=== PATIENT | male | born 1930 | race Caucasian/White ===

== ENCOUNTER → 2018-06-17 | Outpatient (CLI) | payer MEDICARE ==
[2018-05-08 11:00] VITALS: BP 118/73
[~2018-06-17] MED LIST: BALS60OI TP; Fluconazole PO; IBUP-1027 PO; LEVO100T PO; LINE600T PO; NYST15PO9 TP; SENN-80 PO
== END | disposition home or self-care (01) ==
LOC: PMGWOUND 11:25
PROVIDERS: ATTEND Preventive Medicine Undersea and Hyperbaric Medicine
DX: L89.893 Pressure ulcer of other site, stage 3 (principal); L89.623 Pressure ulcer of left heel, stage 3; L97.421 Non-pressure chronic ulcer of left heel and midfoot limited to breakdown of skin; L97.511 Non-pressure chronic ulcer of other part of right foot limited to breakdown of skin; I11.0 Hypertensive heart disease with heart failure; I50.22 Chronic systolic (congestive) heart failure; I73.9 Peripheral vascular disease, unspecified; I48.91 Unspecified atrial fibrillation; K21.9 Gastro-esophageal reflux disease without esophagitis; E03.9 Hypothyroidism, unspecified
CPT/HCPCS: 97597

== ENCOUNTER → 2018-06-24 | Outpatient (CLI) | payer MEDICARE ==
[2018-05-08 11:00] VITALS: BP 118/73
== END | disposition home or self-care (01) ==
LOC: PMGWOUND 11:11
PROVIDERS: ATTEND Preventive Medicine Undersea and Hyperbaric Medicine
DX: L89.893 Pressure ulcer of other site, stage 3 (principal); L97.511 Non-pressure chronic ulcer of other part of right foot limited to breakdown of skin; L89.623 Pressure ulcer of left heel, stage 3; L97.421 Non-pressure chronic ulcer of left heel and midfoot limited to breakdown of skin; I11.0 Hypertensive heart disease with heart failure; I50.42 Chronic combined systolic (congestive) and diastolic (congestive) heart failure; I48.91 Unspecified atrial fibrillation; E03.9 Hypothyroidism, unspecified; I73.9 Peripheral vascular disease, unspecified; K21.9 Gastro-esophageal reflux disease without esophagitis
CPT/HCPCS: 87071; 87075; 97597

== ENCOUNTER → 2018-07-01 | Outpatient (CLI) | payer MEDICARE ==
[2018-05-08 11:00] VITALS: BP 118/73
== END | disposition home or self-care (01) ==
LOC: PMGWOUND 11:03
PROVIDERS: ATTEND Preventive Medicine Undersea and Hyperbaric Medicine
DX: L89.623 Pressure ulcer of left heel, stage 3 (principal); L89.893 Pressure ulcer of other site, stage 3; I11.0 Hypertensive heart disease with heart failure; I50.42 Chronic combined systolic (congestive) and diastolic (congestive) heart failure; I48.91 Unspecified atrial fibrillation; I73.9 Peripheral vascular disease, unspecified; E03.9 Hypothyroidism, unspecified; K21.9 Gastro-esophageal reflux disease without esophagitis
CPT/HCPCS: 93923; 97597

== ENCOUNTER → 2018-07-29 | Outpatient (CLI) | payer MEDICARE ==
[2018-05-08 11:00] VITALS: BP 118/73
== END | disposition home or self-care (01) ==
LOC: PMGWOUND 11:16
PROVIDERS: ATTEND Preventive Medicine Undersea and Hyperbaric Medicine
DX: L89.623 Pressure ulcer of left heel, stage 3 (principal); L02.416 Cutaneous abscess of left lower limb; L89.893 Pressure ulcer of other site, stage 3; I11.0 Hypertensive heart disease with heart failure; I50.42 Chronic combined systolic (congestive) and diastolic (congestive) heart failure; I48.91 Unspecified atrial fibrillation; I73.9 Peripheral vascular disease, unspecified; E03.9 Hypothyroidism, unspecified; K21.9 Gastro-esophageal reflux disease without esophagitis
CPT/HCPCS: 10140; 11042; 87071; 87075; 97597

== ENCOUNTER → 2018-08-28 | Outpatient (CLI) | payer MEDICARE ==
[2018-05-08 11:00] VITALS: BP 118/73
== END | disposition home or self-care (01) ==
LOC: PMGWOUND 10:29
PROVIDERS: ATTEND Preventive Medicine Undersea and Hyperbaric Medicine
DX: L89.623 Pressure ulcer of left heel, stage 3 (principal); L89.893 Pressure ulcer of other site, stage 3; I11.0 Hypertensive heart disease with heart failure; I50.22 Chronic systolic (congestive) heart failure; E03.9 Hypothyroidism, unspecified; I48.91 Unspecified atrial fibrillation; I10 Essential (primary) hypertension; I73.9 Peripheral vascular disease, unspecified; K21.9 Gastro-esophageal reflux disease without esophagitis
CPT/HCPCS: 99214; G0463

== ENCOUNTER → 2018-09-02 | Outpatient (CLI) | payer MEDICARE ==
[2018-05-08 11:00] VITALS: BP 118/73
--- NOTE | 2018-09-03 09:09 | RAD ---
Indication: Nonhealing left heel wound and right second toe. History of left great saphenous vein stripped 40 years ago. IMPRESSION: Grayscale, color Doppler and spectral waveform images of the bilateral lower extremity superficial veins. COMPARISON: None FINDINGS: Right side: The diameter of the great saphenous vein at the saphenofemoral junction measures 1.13 cm with reflux time of 2.6 seconds. The diameter of the mid great saphenous vein measures 9.5 mm with reflux time of 1.6 seconds. The diameter of the distal great saphenous vein measures 6.4 mm with reflux time of 2.3 seconds. The diameter of the great saphenous vein in the proximal calf measures 4.4 mm with reflux time of 2 seconds. Tortuous great saphenous vein is seen past the proximal calf. The diameter of the proximal small saphenous vein at the saphenopopliteal junction measures 1.8 mm, mid segment measures 2.2 mm and distal segment measures 1.8 mm. Left side: The left great saphenous vein has been stripped 40 years ago per history. The diameter of the proximal small saphenous vein measures 2.2 mm, mid segment measures 4.2 mm and distal segment measures 4.2 mm. IMPRESSION: Right great saphenous vein reflux from groin to the proximal calf with insufficiency greater than one second. Evaluation of great saphenous vein in the distal calf is limited due to tortuosity and many branches. Electronically signed by: Neto Roman DO (09/03/2018 9:06 AM) [facility]
== END | disposition home or self-care (01) ==
LOC: US 14:06
PROVIDERS: ATTEND Preventive Medicine Undersea and Hyperbaric Medicine
DX: L97.511 Non-pressure chronic ulcer of other part of right foot limited to breakdown of skin (principal); L97.421 Non-pressure chronic ulcer of left heel and midfoot limited to breakdown of skin
CPT/HCPCS: 93970

== ENCOUNTER → 2018-09-09 | Outpatient (CLI) | payer MEDICARE ==
[2018-05-08 11:00] VITALS: BP 118/73
== END | disposition home or self-care (01) ==
LOC: PMGWOUND 11:24
PROVIDERS: ATTEND Preventive Medicine Undersea and Hyperbaric Medicine
DX: L89.623 Pressure ulcer of left heel, stage 3 (principal); L89.893 Pressure ulcer of other site, stage 3; L02.416 Cutaneous abscess of left lower limb; I11.0 Hypertensive heart disease with heart failure; I50.22 Chronic systolic (congestive) heart failure; E03.9 Hypothyroidism, unspecified; I48.91 Unspecified atrial fibrillation; I73.9 Peripheral vascular disease, unspecified; K21.9 Gastro-esophageal reflux disease without esophagitis
CPT/HCPCS: 99213; G0463

== ENCOUNTER → 2018-12-08 | Outpatient (CLI) | payer MEDICARE ==
[2018-05-08 11:00] VITALS: BP 118/73
--- NOTE | 2018-12-08 13:47 | CARD ---
MR#: [id number] Date of Study: 12/08/2018 Ordering Physician: NITISH CLARK, Referring Physician: NITISH CLARK Tech: Flaquita BANKST: Inocente BOWLES;LEANDRO APPROVED REPORT Patient StatusOUT-PATIENT Artificial Breeding Technician: Flaquita Del Cid RVT: Inocente BOWLES;LEANDRO Procedure(s) performed: Endovenous Venaseal ablation of the Right greater saphenous vein. INDICATION FOR PROCEDURE The indication(s) include : Symptomatic Chronic Venous Insufficiency with Varicose Veins, lower extre mity pain, edema and non healing wound. PROCEDURE NARRATIVE After explaining the risks, benefits and alternative options, informed consent was obtained from [place] ent. Patient was brought to the procedure suite and duplex ultrasound was used to map out the insuffi cient saphenous vein. The access site was determined and marked on the overlying skin. The depth and diameter of the vein (s) to be treated was documented. The patient was placed supine on the procedure table and the leg was prepped and draped using sterile technique. Ultrasound guidance was again used to localize the access site. 1% lidocaine was injected into the sk in and subcutaneous tissues for local anesthesia. Using ultrasound guidance, access was obtained in t he saphenous vein with a 19-gauge thin-walled needle followed by introduction of a short guidewire. T he intraluminal location was confirmed with ultrasound and a 7 Congolese 7 cm sheath was inserted into t he vein. A 0.035 inch guidewire from the Venaseal kit was then introduced and positioned at the saphe nofemoral junction using ultrasound guidance. The 80 cm 7 Congolese introducer sheath/dilator was positi oned 5 cm from the saphenofemoral junction. The guidewire and dilator were removed and the remaining sheath was flushed with sterile saline, with the syringe remaining in place prior to the next steps. The Cyanoacrylate adhesive was loaded into a 3 cc syringe that was then attached to the 5F delivery c athter and loaded on to the Dispenser gun.The catheter was primed precisely and this 'assembly' was i ntroduced through the 7 Congolese sheath and positioned 5 cm caudal to the saphenofemoral junction under ultrasound guidance. While applying compression cephalad to the cathter tip with the ultrasound aguiar sducer, 0.10 cc of the VenaSeal adhesive was delivered into the vein by pulling the trigger of the [employer] emeli gun. The catheter was pulled back 1 cm and another 0.10 cc of the adhesive was delivered foll owing which the catheter was pulled back 3 cm. Compression was applied over the vein for 3 minutes. T he catheter tip position was confirmed again using the ultrasound, 0.10 cc Venaseal adhesive delivere d, catheter pulled back 3 cm and compression applied for 30 seconds. These steps were repeated to tr eat the entire length of the incompetent vein. Following the last injection and compression sequence, the catheter and introducer sheath were pulled out from the access site. Hemostasis was achieved with manual compression and an adhesive bandage wa s applied to the incision. Ultrasound confirmed complete coaptation and closure of the treated segmen ts of the greater saphenous vein, and the absence of any DVT at the saphenofemoral junction. Treatmen t length was 47 cm. The drapes were removed and the patient cleaned and prepared for discharge. Patient tolerated the pro cedure well. There were no immediate complications. Postop ultrasound check scheduled for 48-72 hours and the patient was given written postop instructions. Signed by : Nitish Clark, Electronically Approved : 12/08/2018 13:46:23
== END ==
LOC: VNUS 12:28
PROVIDERS: ATTEND Internal Medicine Cardiovascular Disease
DX: I87.331 Chronic venous hypertension (idiopathic) with ulcer and inflammation of right lower extremity (principal)
CPT/HCPCS: 36482

== ENCOUNTER → 2018-12-09 | Outpatient (CLI) | payer MEDICARE ==
[2018-05-08 11:00] VITALS: BP 118/73
--- NOTE | 2018-12-09 16:58 | RAD ---
MR#: [id number] Date of Study: 12/09/2018 Ordering Physician: NITISH DEL ANGEL, Referring Physician: NITISH DEL ANGEL, Tech: SUYAPA Melgar, RDMS, RTR APPROVED REPORT Right Lower Extremity Venous Study for DVT Patient Location: OUT-PATIENT Indications RT GSV POST ABLATION CHECK Findings Grayscale images of the right lower extremity deep veins were obtained for evaluation of DVT after re cent greater saphenous vein ablation. The right great saphenous vein has thrombus consistent with recent ablation. There is no extension in to the saphenofemoral junction. The common femoral vein, superficial femoral vein and popliteal veins appear to be compressible. Tech nically the images are limited but no gross evidence of DVT. Spectral waveforms and color Doppler are within normal limits. There is several cutaneous edema below the knee and the peroneal veins were no t well visualized. Unable to rule out DVT below the knee. Critical Notification Critical Value: No <Conclusion> 1. Technically limited study, successful right GSC ablation 2. No obvious evidence of DVT in the common femoral vein, superficial femoral vein and popliteal vein s. Limited evaluation below the knee due to edema. Signed by : Chris Claire, Electronically Approved : 12/09/2018 16:58:49
== END | disposition home or self-care (01) ==
LOC: US 13:00
PROVIDERS: ATTEND Internal Medicine Cardiovascular Disease
DX: I87.2 Venous insufficiency (chronic) (peripheral) (principal)
CPT/HCPCS: 93971

== ENCOUNTER → 2018-12-15 | Outpatient (CLI) | payer MEDICARE ==
[2018-05-08 11:00] VITALS: BP 118/73
--- NOTE | 2018-12-15 14:14 | CARD ---
MR#: [id number] Date of Study: 12/15/2018 Ordering Physician: NITISH DEL ANGEL, Referring Physician: NITISH DEL ANGEL Tech: Shahnaz Bray RDCS APPROVED REPORT EXAM: Two-dimensional and M-mode echocardiogram with Doppler and color Doppler. Other Information Quality : AverageHR: 59bpm Rhythm : Atrial Fibrillation INDICATION Atrial Fibrillation 2D DIMENSIONS RVDd3.2 (2.9-3.5cm)Left Atrium(2D)5.5 (1.6-4.0cm) IVSd0.7 (0.7-1.1cm)Aortic Root(2D)3.3 (2.0-3.7cm) LVDd5.0 (3.9-5.9cm)LVOT Diameter2.1 (1.8-2.4cm) PWd0.9 (0.7-1.1cm)LVDs3.8 (2.5-4.0cm) FS (%) 24.3 %SV58.1 ml LVEF(%)48.0 (>50%) M-Mode DIMENSIONS Left Atrium(MM)5.90 (2.5-4.0cm)IVSd0.72 (0.7-1.1cm) Aortic Root3.40 (2.2-3.7cm)LVDd5.14 (4.0-5.6cm) PWd0.87 (0.7-1.1cm)FS (%) 24 % LVDs3.93 (2.0-3.8cm)ESV(Teich)67.1 ml LVEF(%)47 (>50%) Aortic Valve AoV Peak Hernan.133.1cm/sAoV VTI28.7cm AO Peak GR.7.1mmHgLVOT Peak Hernan.78.7cm/s AO Mean GR.4mmHgAVA (VMAX)2.05cm2 EDUARDO (VTI)2.10cm2 Mitral Valve MV E Zmcjkkla223.1cm/sMV E Peak Gr.73mmHg MV DECEL [id number] A Rrpebnuy47.5cm/s E/A Ratio3.3 Pulmonary Valve PV Peak Ssjoweli73.5cm/s Tricuspid Valve TR P. Etdtmemr573pz/sRAP HGMATWVC0vaDz TR Peak Gr.73ykFkIGNO43klZc LEFT VENTRICLE The left ventricle is normal size. There is normal left ventricular wall thickness. Left ventricle sy stolic function is low normal. The Ejection Fraction is 45-50%. Septal motion consistent with conduct ion abnormality. Transmitral Doppler flow pattern is abnormal. RIGHT VENTRICLE The right ventricle is mildly dilated. There is normal right ventricular wall thickness. RV Systolic function is mildly reduced. ATRIA The left atrium is moderately dilated. The right atrium is moderately dilated. The interatrial septum is intact with no evidence for an atrial septal defect or patent foramen ovale as noted on 2-D or Do ppler imaging. AORTIC VALVE The aortic valve is calcified but opens well. The aortic valve is trileaflet. Doppler and Color Flow revealed trace to mild aortic regurgitation. There is no significant aortic valvular stenosis. There is no aortic valvular vegetation. MITRAL VALVE The mitral valve is mildly thickened but opens well. There is no evidence of mitral valve prolapse. T here is no mitral valve stenosis. Doppler and Color-flow revealed moderate mitral regurgitation. TRICUSPID VALVE The tricuspid valve is normal in structure and function. Doppler and Color Flow revealed mild tricusp id regurgitation. There is moderate pulmonary hypertension. The PA pressure was estimated at 41 mmHg. There is no tricuspid valve prolapse or vegetation. There is no tricuspid valve stenosis. PULMONIC VALVE The pulmonic valve is not well visualized. GREAT VESSELS The aortic root is normal in size. The ascending aorta is normal in size. The IVC is dilated. PERICARDIAL EFFUSION There is no evidence of significant pericardial effusion. Critical Notification Critical Value: No <Conclusion> Left ventricle systolic function is low normal. The Ejection Fraction is 45-50%. Septal motion consistent with conduction abnormality. RV Systolic function is mildly reduced. Doppler and Color-flow revealed moderate mitral regurgitation. Doppler and Color Flow revealed mild tricuspid regurgitation. There is moderate pulmonary hypertensio n. The PA pressure was estimated at 41 mmHg. Signed by : Chris Claire, Electronically Approved : 12/15/2018 14:14:27
== END | disposition home or self-care (01) ==
LOC: ECHO 13:16
PROVIDERS: ATTEND Internal Medicine Cardiovascular Disease
DX: I08.3 Combined rheumatic disorders of mitral, aortic and tricuspid valves (principal); I27.20 Pulmonary hypertension, unspecified; I48.0 Paroxysmal atrial fibrillation
CPT/HCPCS: 93306

== ENCOUNTER → 2019-01-06 | Outpatient (CLI) | payer MEDICARE ==
[2018-05-08 11:00] VITALS: BP 118/73
[~2019-01-06] MED LIST changes: +GADOBUTROL 10 MMOL/10 ML VIAL IV ONE
--- NOTE | 2019-01-06 13:36 | RAD ---
MR of the right forefoot with and without contrast HISTORY: Right foot nonhealing wound at the second toe.i TECHNIQUE: Routine multiplanar sequences are obtained before and after intravenous contrast. FINDINGS: Marrow edema and enhancement within the distal shaft and head of the second metatarsal. There is corresponding mild loss of fatty marrow T1 signal. Findings are suspicious for acute osteomyelitis, particularly in the context of an adjacent ulcer. The second toe phalanges demonstrate subtle marrow edema but no aggressive bone destruction or loss of fatty marrow signal. There is diffuse soft tissue and intramuscular edema. No organized fluid collection or drainable abscess is seen. No significant tendon sheath fluid. No evidence of large joint effusion. 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 IMPRESSION: Findings are suspicious for osteomyelitis at the distal aspect of the second metatarsal, particularly in the context of the nearby ulcer. Electronically signed by: Junaid Joy MD (01/06/2019 1:34 PM) [facility]
== END | disposition home or self-care (01) ==
LOC: MRI 10:50
PROVIDERS: ATTEND Preventive Medicine Undersea and Hyperbaric Medicine
DX: M19.071 Primary osteoarthritis, right ankle and foot (principal); L97.519 Non-pressure chronic ulcer of other part of right foot with unspecified severity
CPT/HCPCS: 73720; A9585

== ENCOUNTER → 2019-02-08 | Day surgery (SDC) | payer MEDICARE ==
[~2019-02-08] VITALS: Ht 177.8 cm; Wt 86.2 kg
[~2019-02-08] MED LIST changes: +ASPI-630 PO; +BUPIVACAINE MPF 0.5% 30 ML VIAL. ONE; +DEXAMETHASONE SOD PHOS 4 MG/ML VIAL ONE; +DOCU-109 PO; -GADOBUTROL 10 MMOL/10 ML VIAL IV ONE; +GLYCOPYRROLATE 1 MG/5 ML VIAL. ONE; +HYDR-3164 PO; +HYDROmorphone 2 MG/ML VIAL IV PRN; +IV RINGERS,LACTATED 1000ML 1,000 ML IV SCH; +LIDOCAINE 1% 20 ML VIAL. ONE; +LIDOCAINE 1% PF 2 ML VIAL. ID PRN; +LIDOCAINE 2% PF 5 ML VIAL. ONE; +MORPHINE SULFATE 2 MG/ML VIAL. IV PRN; +ONDA8TAB9 PO/SL; +ONDANSETRON PF 4 MG/2 ML VIAL. IV PRN; +ONDANSETRON PF 4 MG/2 ML VIAL. ONE; +PHENYLEPHRINE in 0.9% NACL PF 1 MG/10 ML SYRINGE. IV ONE; +PROCHLORPERAZINE 10 MG/2 ML VIAL. IV PRN; +PROPOFOL 20 ML IV ONE; +VANCOMYCIN 1GM IVPB FOR OMNI 250 ML IV ONE; +fentaNYL PF VIAL 100 MCG/2 ML VIAL IV PRN; +fentaNYL PF VIAL 100 MCG/2 ML VIAL ONE
--- NOTE | 2019-02-08 07:43 | DISCH ---
DISCHARGE INSTRUCTIONS Condition on Discharge Condition on Discharge: Stable Activity After Discharge Activity Instructions for Disc: Activity as tolerated Other activity instructions: ok to weightbear through heel Bathing Instructions: Shower-keep dressing dry Driving Instructions after Dis: Do not drive Weight Bearing Status after Di: As tolerated Diet after Discharge Diet after Discharge: Regular Diet Texture: Regular Liquid Texture: Thin Liquid Swallowing Supervision: None needed Wound Incision Care Wound/Incision Care: Keep wound elevated, Change dressing Checks after Discharge Checks after discharge: Check blood press - daily, Check blood sugar, ac/hs, Check your Temp as needed Contacting the DRJennyfer after DC Call your doctor for: Concerns you may have Follow-Up Follow up with: William in 2 wks Treatment/Equipment after DC Adaptive Equipment Issued: None TWYLA EMERSON II, MD Feb 08, 2019 07:43
--- NOTE | 2019-02-08 09:02 | PDOC4 ---
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 Blood loss: 10 mL Findings: No gross purulence, friable bone at distal metatarsal and second toe Tourniquet time: 15 minutes Complications: None Reason for procedure: Patient is a very pleasant 88-year-old gentleman who was referred to my outpatient clinic from the wound care center, he had a chronic wound and developed osteomyelitis of his right second toe and failed conservative therapies. Given the changes at his distal metatarsal adjacent to the toe on MRI, we had a discussion of the risks, benefits, and alternatives with he and his family regarding the procedure and they elected to proceed. Description of procedure: Patient was greeted in the preoperative area by myself for the correct extremity was verified and marked. He was taken to the operative suite and his antibiotics were started before he was brought back. Once in the operating room, he was transferred gently supine to the operating table and secured the bed with all pressure points padded. He had successful induction of a general anesthetic, we applied a nonsterile tourniquet to his right thigh and proceeded to prep and drape right lower extremity in our usual sterile fashion using Betadine paint. We then conducted our standard preoperative timeout. I then used a skin marking pen to draw a tennis racket incision around his second toe and distal metatarsal. I incised skin with a scalpel after using gravity exsanguination and insufflating the tourniquet to 250 mmHg. I continue my dissection down deep with electrocautery circumferentially and release the joint capsule and delivered the second toe from the operative field, due to the friable nature of his bone, some of the proximal portion of the proximal phalanx was left behind and I removed this with a Rominger. I then performed a subperiosteal dissection with electrocautery around his distal second metatarsal and after this I protected the surrounding soft tissues with Therese retractors and used a saw to make a bone cut his distal second metatarsal in a plantar proximal dorsal distal fashion. After this, I thoroughly irrigated out the operative field with about 2000 mL of sterile fluid. I then let tourniquet down and cauterized some bleeders, he had a reasonable amount of bleeding from his skin edges. I then continued my irrigation. After this, I proceeded to close skin with combination of simple interrupted and mattress 2-0 nylon. I then infiltrated the vera-incisional soft tissues with a local anesthetic mixture. Prior to wound closure, all counts correct �2. No complications. Surgery was well tolerated by the patient. At the conclusion, he was awakened from anesthesia after sterile soft bulky dressing was applied. He was transferred gently supine to the recovery room cart and taken to the PACU in a stable and next a beta condition. Postoperative plan is to discharge him home. I discussed weightbearing and wound care with he and his family and for verbal and written form. I will see him back in 2 weeks, sooner should a problem arise. FRANK EMERSON II, MD Feb 08, 2019 09:02
[2019-02-08 09:15] VITALS: BP 137/78
--- NOTE | 2019-02-10 15:07 | PATHOLOGY ---
[facility] Accession Number: [id number] . 01 Material submitted: . toe - SECOND TOE AND SECOND METATARSAL HEAD (RIGHT). Modifiers: second, right . 01 Clinical history: . R second toe osteomyelitis . 02 Diagnosis: Toe and separate segment of bone with attached articular cartilage and soft tissue, right second toe ray amputation: - Small focus of ulceration and acute inflammation of skin of toe with overlying scale crust and with surrounding granulation and scar tissue. - Toe negative for acute osteomyelitis. - Separate segment of bone showing focal marrow fibrosis, new bone formation, and bone remodeling - negative for acute osteomyelitis. (JPM:surjit; 02/10/2019) QMS/02/10/2019 . 02 Electronically signed: . Dmitriy Bills MD, Pathologist NPI- [id number] . 01 Gross description: . The specimen is received in formalin, labeled "Carlos Dorman, second toe and second metatarsal head (right)". Received is an amputated digit measuring 7.2 x 2.7 x 2.5 cm in greatest dimensions. The bone margin is jagged in appearance. The bone and soft tissue margins are inked black. The nail is present displaying a light talbert to yellow-talbert and thickened to flaky appearance. The epidermal surface displays a poorly circumscribed, irregular in contour, partially crusted pink-talbert to light talbert lesion measuring 2.6 x 1.7 cm, which is 0.2 cm from the closest skin margin. A full-thickness longitudinal cross-section is submitted from proximal to distal aspects in cassettes A1 through A3, following decalcification. . Also received within the specimen container is an additional segment of bone displaying one smooth, convex margin, consistent with disarticulation, and one jagged margin measuring 2.4 x 2.0 x 1.5 cm in greatest dimensions. The jagged margin is inked black. A full thickness cross-section is submitted in cassette A4, following decalcification. (CAA; 02/09/2019) QAC/QAC . 02 Pathologist provided ICD-10: L97.519, L98.9 . 02 CPT . 636586, 334754 Specimen Comment: A courtesy copy of this report has been sent to Specimen Comment: [phone], . Specimen Comment: Report sent to / DR DO Performed at: 01 [facility] [address], [place] [id number] MD Elliot Mulligan MD Phone: [phone] Performed at: 02 [facility] [address] [place], [place] [id number] MD Dmitriy Bills MD Phone: [phone]
== END ==
LOC: SURG 06:08
PROVIDERS: ATTEND Orthopaedic Surgery Sports Medicine
DX: M86.8X7 Other osteomyelitis, ankle and foot (principal); I10 Essential (primary) hypertension; I48.91 Unspecified atrial fibrillation; E03.9 Hypothyroidism, unspecified; Z86.14 Personal history of Methicillin resistant Staphylococcus aureus infection; Z98.890 Other specified postprocedural states; Z72.89 Other problems related to lifestyle; Z88.1 Allergy status to other antibiotic agents
CPT/HCPCS: 28810; A7015; J1100; J2001; J2370; J2405; J2704; J3010; J3370; J3490; A4461